=== PATIENT | male | born 1960 | race Caucasian/White ===

== ENCOUNTER 2021-02-06 11:58 | Outpatient (REF) | payer MEDICARE, SELFPAY ==
[2021-02-06 19:39] LABS: Abs Immature Grans 0.02 10^3/uL (0.0-0.06); Absolute Basophil Count 0.05 10^3/uL (0.0-0.2); Absolute Eosinophil Count 0.24 10^3/uL (0.0-0.7); Absolute Lymphocyte Count 2.11 10^3/uL (1.2-3.4); Absolute Monocyte Count 0.54 10^3/uL (0.1-0.8); Basophils % 0.6; Eosinophils % 2.9; HCT 50.6 % (40.0-50.0); HGB 16.8 g/dL (13.5-17.5); Immature Grans % 0.2; Lymphocytes % 25.2; MCH 28.9 pg (27.0-33.0); MCHC 33.2 % (32.0-36.0); MCV 86.9 fL (80-95); MPV 10.4 fL (8.0-11.0); Monocytes % 6.5; Neutrophils % 64.6; Nucleated RBC 0 %; Platelet Count 285 10^3/uL (130-400); RBC 5.82 10^6/uL (4.36-5.78); RDW 13.2 % (11.8-14.1); WBC 8.36 10^3/uL (4.4-10.8)
[2021-02-06 20:26] LABS: FREE T4 0.88 ng/dL (0.76-1.46); TSH 1.72 uIU/mL (0.36-3.74)
[2021-02-08 17:03] LABS: T3,Free 3.3 pg/mL (2.8-5.3)
[2021-02-09 09:18] LABS: IgA 95 mg/dL (85-499); IgG 1672 mg/dL (610-1,616); IgM 107 mg/dL (35-242)
[2021-02-09 10:56] LABS: IgE 8 IU/mL (<158)
== END 2021-02-06 11:59 | disposition home or self-care (01) ==
LOC: LBN 11:58
PROVIDERS: PCP Family Medicine; Visit Provider Student in an Organized Health Care Education/Training Program
DX: R05 Cough (principal); R53.83 Other fatigue; J45.909 Unspecified asthma, uncomplicated
CPT/HCPCS: 82784; 82785; 84439; 84443; 84481; 85025

== ENCOUNTER 2021-04-06 02:04 | Outpatient (CLI) | payer MEDICARE, SELFPAY ==
[2021-04-06] MEDS: Inhaler, Assist Device 1 EACH MC (11:44)
[2021-04-06] MEDS: Albuterol HFA 18 GM 200 PUFF INH IH (11:44)
[2021-04-06] MEDS: Methacholine 100 MG VIAL IH (11:44)
--- NOTE | 2021-04-10 06:55 | W.PFT ---
Date of service: 04/06/21 Time of Service: 10:04 Pulmonary Function Test Result Requesting Provider Mick Indications: Chronic cough Interpretation Spirometry: There is no airflow limitation. There is not a significant decline in FEV1 with methacholine administration. Impression Normal spirometry. Negative methacholine challenge Note: When compared to August 2020, the FEV1 is unchanged, but the FVC has decreased. Clinical Correlation therefore is recommended.
== END 2021-04-06 02:05 | disposition home or self-care (01) ==
LOC: RT 02:04
PROVIDERS: PCP Family Medicine; Visit Provider Student in an Organized Health Care Education/Training Program
DX: R05.3 Chronic cough (principal); Z57.5 Occupational exposure to toxic agents in other industries
CPT/HCPCS: 94060; 95070; J7674

== ENCOUNTER 2021-06-04 02:48 | Outpatient (CLI) | payer MEDICARE, SELFPAY ==
--- NOTE | 2021-06-04 07:00 | DI.CT_ITS ---
Exam(s) CT CHEST WO EXAM: CT CHEST WO CLINICAL HISTORY: F/U SMALL NODULE LAST YEAR,R91.1,ASTHMA,J45.279. TECHNIQUE: Imaging protocol: Axial computed tomography images were obtained and coronal and sagittal reformatted images were created and reviewed. COMPARISON: CT CT Chest wo/c from 06/05/2020 FINDINGS: Tracheobronchial tree: Patent where visualized. Pulmonary parenchyma: No focal consolidation. There is a 2 mm nodule associated with the right minor fissure. There is a stable nodule in the peripheral aspect of the right lower lobe. There is a 3 m m nodule in the periphery of the left lower lobe. This is unchanged. No new pulmonary nodules are p resent. No architectural distortion. Mediastinum and Ebony: No dominant adenopathy or fluid collection. The esophagus is unremarkable. Thyroid gland: Unremarkable. Pleura: No effusion or pneumothorax. Heart: The heart is not dilated. No coronary artery calcifications are seen. No pericardial effusion. Aorta: Thoracic aorta non-dilated. Mild atherosclerosis. Upper abdomen: Unremarkable. Lymph nodes: Within normal limits. 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 Bones:Within normal limits for the patient's age. IMPRESSION: Stable pulmonary nodules. No follow-up is recommended. (Muna et al., 2017) RADIATION DOSE DELIVERED: 802.74mGy.cm Total DLP 802.74mGy.cm Total DLP DATA REPOSITORY: All CT scans at this facility are submitted to the National Radiology Data Registry (NRDR) Dose Index Registry (DIR) with the [employer] ([employer]). RADIATION OPTIMIZATION: All CT scans at this facility use at least one of these dose optimization te chniques: automated exposure control; mA and/or kV adjustment per patient size (includes targeted exa ms where dose is matched to clinical indication); or iterative reconstruction.
== END 2021-06-04 03:08 ==
LOC: DI 02:48
PROVIDERS: PCP Family Medicine; Visit Provider Student in an Organized Health Care Education/Training Program
DX: R91.1 Solitary pulmonary nodule
CPT/HCPCS: 71250

== ENCOUNTER 2021-06-23 12:24 | Outpatient (REF) | payer MEDICARE, SELFPAY ==
[2021-06-23 13:31] LABS: Abs Immature Grans 0.01 10^3/uL (0.0-0.06); Absolute Basophil Count 0.04 10^3/uL (0.0-0.2); Absolute Eosinophil Count 0.13 10^3/uL (0.0-0.7); Absolute Lymphocyte Count 1.67 10^3/uL (1.2-3.4); Absolute Monocyte Count 0.51 10^3/uL (0.1-0.8); Absolute Neutrophil Count 5.35 10^3/uL (1.2-6.7); Basophils % 0.5; Eosinophils % 1.7; HCT 49.3 % (40.0-50.0); HGB 16.8 g/dL (13.5-17.5); Immature Grans % 0.1; Lymphocytes % 21.7; MCH 28.8 pg (27.0-33.0); MCHC 34.1 % (32.0-36.0); MCV 84.4 fL (80-95); MPV 10.1 fL (8.0-11.0); Monocytes % 6.6; Neutrophils % 69.4; Nucleated RBC 0 %; Platelet Count 294 10^3/uL (130-400); RBC 5.84 10^6/uL (4.36-5.78); RDW 12.5 % (11.8-14.1); RDW-SD 38.6 fL; WBC 7.71 10^3/uL (4.4-10.8)
[2021-06-23 13:51] LABS: ALT 36 U/L (16-63); AST 14 U/L (15-37); Albumin 3.9 g/dL (3.4-5.0); Alkaline Phosphatase 88 U/L (46-116); BUN 16 mg/dL (7-18); Bilirubin, Total 0.5 mg/dL (0.2-1.0); CREATININE 1.1 mg/dL (0.70-1.30); Calcium 9.1 mg/dL (8.5-10.1); Chloride 103 mmol/L (98-107); Glucose 117 mg/dL (74-106); Potassium 3.4 mmol/L (3.5-5.1); Sodium 140 mmol/L (136-145); Total Protein 7.5 g/dL (6.4-8.2)
[2021-06-24 10:50] LABS: IgE 6 IU/mL (<158)
[2021-06-24 23:22] LABS: Cockroach IgE <0.35 kU/L; House Dust/Greer Lab, IgE <0.35 kU/L; Mold Panel (MAYO) 1.18 kU/L
== END 2021-06-23 12:25 | disposition home or self-care (01) ==
LOC: LBN 12:24
PROVIDERS: PCP Family Medicine; Visit Provider Student in an Organized Health Care Education/Training Program
DX: J45.909 Unspecified asthma, uncomplicated (principal)
CPT/HCPCS: 80053; 82785; 85025; 86003

== ENCOUNTER 2021-09-08 09:44 | Emergency (ER) | payer MEDICARE, SELFPAY ==
[2021-09-08 09:54] VITALS: BP 133/82; PULSE 84; RESP 16; TEMP 36.6; O2SAT 96
--- NOTE | 2021-09-08 09:55 | ED.GENADUL_ITS ---
Discharge Plan Disposition Patient Disposition: HOME Condition: Stable Discharge Details Clinical Impression: COVID-19 Primary Care Provider: Terry Perdue ED Provider: Derek Holly Home Meds and New Rx's Prescriptions: Continued Breo Ellipta 200-25 mcg/dose blister with device 1 inh inhalation DAILY Qty: 60 5RF gabapentin 300 mg capsule 300 mg PO BID Qty: 90 3RF Rx Instructions: Take 1 tab daily for 3 days, then 1 tab twice daily for 3 days, then 2 tabs in morning and 1 tab at night for 3 days, then 2 tabs twice daily and continue this albuterol sulfate 90 mcg/actuation HFA aerosol inhaler 2 puff inhalation Q6H PRN0RF Daily Multivitamin 1 EACH capsule 1 ea PO DAILY 0RF atorvastatin 10 mg tablet See Rx Instructions PO DIRECTED 0RF Rx Instructions: PO as directed; Advair HFA 230-21 mcg/actuation HFA aerosol inhaler 2 puff inhalation BID Qty: 12 0RF oxycodone-acetaminophen [Percocet] 1 EACH tablet 1 ea PO TID 0RF Label Comments: 07/11/13 pt states he switches from vicodin to percocet from wk to wk. mprn ibuprofen 800 MG tablet 800 mg PO BID PRN0RF Excedrin Migraine 1 EACH tablet 3 tab PO PRN PRN0RF diazepam [Valium] 5 MG tablet 5 mg PO PRN PRN0RF hydrochlorothiazide 25 MG tablet 25 mg PO DAILY 0RF metoprolol tartrate 25 MG tablet 25 mg PO DAILY 0RF Medical Decision Making 60-year-old gentleman, not vaccinated against COVID, not a smoker, past medical history that includes asthma, reports that symptoms began about 9 days ago, mild URI, over the weekend had a positive home Covid test. He spoke with his parts room assistant, Dr. Barton, who was setting him up with monoclonal infusion tomorrow. He reports that he is simply not feeling well and came to the ER today to expedite this process. He has tried some vhpo-hzu-simfhun medications with mild relief. Clinically he appears well, nontoxic, hemodynamically stable. Pulse in the 80s, respirations 16, afebrile, O2 sat 96% on room air. Lungs are clear to auscultation. At this time he appears well, nontoxic, and I do not know that any emergent antibody infusion would make any difference today versus tomorrow as already scheduled. I personally spoke with his parts room assistant, Dr. Barton, regarding his visit today and overall presentation. She feels as though waiting to have the infusions through the infusion clinic tomorrow is perfectly reasonable. This plan was discussed with the patient. He was initially upset that the process could not be expedited by coming to the ER today but is agreeable. He will continue to use oyxh-jzc-mtibacc medications for symptomatic control, have the infusion tomorrow, and follow-up with his parts room assistant as an outpatient, recommend contacting their office tomorrow. He does not want to wait for formal discharge paperwork and was verbally discharged. Standard discharge and return precautions were provided. This documentation was generated using [email or web address] system, please disregard any oddities of phrase or misspellings. Medical Records Medical records reviewed: Yes I reviewed the patient's medical records. HPI General Mode of arrival: ambulatory . Date/Time Provider Initiated Documentation: 09/08/21 09:45 . Limitations to Documentation: no limitations . Information obtained by: patient . History of Present Illness 60 year old M presents to the emergency department with the chief complaint of covid, described as moderate, with intensity rated at 5. Quality is described as aching, and is localized to the back (entire body). Patient reports no radiation. Patient started experiencing this day(s) (9) and it has been other (worsening). improves with No relieving factors improve symptom(s), No exacerbating factors reported . Patient notes cough, fever/chills, nausea/vomiting and weakness (generalized); denies chest pain. Patient did receive the following treatments prior to arrival, other (otc uri meds) Related Data Home Medications Medication Instructions Recorded Confirmed oxycodone-acetaminophen 5 mg-325 1 ea PO TID 07/11/13 09/08/21 mg tablet (Percocet) isomeuj-exjfxxcirlzej-wrztldio 250 3 tab PO PRN PRN 08/13/15 09/08/21 mg-250 mg-65 mg tablet (Excedrin Migraine) diazepam 5 mg tablet (Valium) 5 mg PO PRN PRN 08/13/15 09/08/21 hydrochlorothiazide 25 mg tablet 25 mg PO DAILY 08/13/15 09/08/21 ibuprofen 800 mg tablet 800 mg PO BID PRN 08/13/15 09/08/21 metoprolol tartrate 25 mg tablet 25 mg PO DAILY 08/13/15 09/08/21 dfqujaav-sju-EJ 200 mcg-vit K 100 1 ea PO DAILY 12/16/16 09/08/21 mcg-lycop 500 [id number] capsule (Daily Multivitamin) atorvastatin 10 mg tablet See Rx Instructions PO DIRECTED 01/08/21 09/08/21 tab albuterol sulfate 90 mcg/actuation 2 puff INHALATION Q6H PRN 05/08/21 09/08/21 aerosol inhaler fluticasone furoate 200 1 inh INHALATION DAILY #60 ea 06/23/21 09/08/21 mcg-vilanterol 25 mcg/dose inhalation powder (Breo Ellipta) gabapentin 300 mg capsule 300 mg PO BID #90 cap 06/23/21 09/08/21 fluticasone propionate 230 2 puff INHALATION BID #12 g 07/17/21 09/08/21 mcg-salmeterol 21 mcg/actuation HFA inhaler (Advair HFA) Previous Rx's Medication Instructions Recorded fluticasone furoate 200 1 inh INHALATION DAILY #60 ea 06/23/21 mcg-vilanterol 25 mcg/dose inhalation powder (Breo Ellipta) gabapentin 300 mg capsule 300 mg PO BID #90 cap 06/23/21 fluticasone propionate 230 2 puff INHALATION BID #12 g 07/17/21 mcg-salmeterol 21 mcg/actuation HFA inhaler (Advair HFA) Allergies Allergy/AdvReac Type Severity Reaction Status Date / Time mold Allergy Verified 09/08/21 10:01 Review of Systems Constitutional Constitutional: Denies fever(s), Denies headache(s), Reports malaise and Reports weakness (generalized) ENT Ears, Nose, Mouth, and Throat: Denies headache(s) and Denies neck pain Cardiovascular Cardiovascular: Denies chest pain and Reports dyspnea Respiratory Respiratory: Reports cough and Reports dyspnea Gastrointestinal Gastrointestinal: Denies abdominal pain, Reports nausea and Reports vomiting (with coughing) Genitourinary Genitourinary: Denies dysuria Musculoskeletal Musculoskeletal: Reports myalgias and Denies neck pain Integumentary/Breasts Skin/Breast: Denies rash Neurologic Neurologic: Denies headache(s) and Reports weakness (generalized) PFSH All Active Problems (Updated 09/08/21 @ 11:25 by JESSA Joya) COVID-19 (Acute) Airway hyperreactivity (Chronic) Chronic back pain (Acute) Hypercholesteremia (Acute) Panic attack (Acute) Chest tightness (Acute) Chronic cough (Acute) MDD (major depressive disorder), recurrent episode, moderate (Acute) Anxiety disorder (Acute) Lung nodule (Acute) Fatigue (Acute) Low testosterone in male (Acute) SOB (shortness of breath) (Acute) Medical History Erectile dysfunction Insomnia Moderate asthma without complication Moderate persistent asthma Pneumococcal infection Surgical History Repair of inguinal hernia (~2010) bilat Family History Grandmother Cerebral hemorrhage Grandmother Cerebral hemorrhage Mother Melanoma Father Essential hypertension Social History Smoking/Tobacco Use Status: Never Smoking risk assessment performed?: Yes Drug use: Never Substance use type: does not use Exam Const General: cooperative, healthy appearing, comfortable and no acute distress Orientation: alert and awake [facility] Head: normal to inspection, normocephalic and atraumatic Face and sinus: normal facial exam Mouth: moist mucous membranes Eyes General: appearance normal, both eyes and all related structures Conjunctivae: conjunctivae normal Neck Neck: normal visual inspection, full ROM, no meningeal signs, trachea midline and supple Resp Effort & Inspection: normal respiratory effort, able to speak in complete sentences and cough Quality of cough: dry (Mild) Auscultation: clear to auscultation bilaterally Cardio Rate: regular rate Rhythm: regular rhythm GI Palpation: soft and nontender Skin General skin exam: no rashes or lesions noted Neuro General: patient alert, patient awake, moves all extremities and no focal motor deficits Cognition: normal cognition Speech: speech normal Gait: normal gait Sensory Exam: no sensory deficits noted Extrem General: normal to inspection, full ROM, no pedal edema and no calf tenderness Psych Appearance: grossly normal Mental Status: mental status grossly normal
== END 2021-09-08 10:48 | disposition home or self-care (01) ==
PROVIDERS: Emergency Provider Physician Assistant; PCP Family Medicine
DX: U07.1 COVID-19 (principal)
CPT/HCPCS: 99282

== ENCOUNTER 2021-09-09 02:22 | Outpatient (CLI) | payer MEDICARE, SELFPAY ==
[2021-09-09 08:45] VITALS: BP 124/83; PULSE 80; RESP 20; TEMP 36.9; O2SAT 94
[2021-09-09 10:15] VITALS: BP 138/83; PULSE 65; RESP 20; TEMP 36.1; O2SAT 94
== END 2021-09-09 02:23 | disposition home or self-care (01) ==
PROVIDERS: PCP Family Medicine; Visit Provider Family Medicine
DX: U07.1 COVID-19 (principal)
CPT/HCPCS: 96374; Q0222